=== PATIENT | female | born 1955 | race Caucasian/White ===

== ENCOUNTER → 2018-06-04 | Outpatient (CLI) | payer SELFPAY ==
[~2018-06-04] MED LIST: CYCL10 PO; FENT50TP TOP; OXYACE5T PO
[2018-06-04 18:32] LABS: U Amphetamine Screen DETECTED; U Barbituate Screen Not Detected; U Benzodiazapine Screen Not Detected; U Buprenorphine Screen Not Detected; U Cannabinoids Screen Not Detected; U Cocaine Screen Not Detected; U Methadone Screen Not Detected; U Methamphetamine Screen Not Detected; U Opiates Screen DETECTED; U Oxycodone Screen Not Detected; U Phencyclidine Screen Not Detected; U Propoxyphene Screen Not Detected
== END | disposition home or self-care (01) ==
LOC: LAB 17:24 → LAB SHORT 17:24
PROVIDERS: Internal Medicine
DX: G89.4 Chronic pain syndrome (principal)

== ENCOUNTER 2019-04-01 14:21 | Day surgery (SDC) | payer MEDICARE, OTHER ==
[~2019-04-01] VITALS: Ht 160 cm; Wt 72.0 kg
[~2019-04-01 14:21] MED LIST changes: +Adipex-P37.5 MG PO; +Aspirin EC81 MG PO; +EVZIO2 MG/0.4 M IM; +LEVSOD50 PO; +LEVSOD75 PO; +MIRALAX17 GM PO; +MORP30ER PO; +Neurontin600 MG PO; +OXYC5 PO; +UNISOM25 MG PO; +Vivelle-Dot1 EAC3 TD; +Zocor10 MG PO
--- NOTE | 2019-04-01 15:36 | NUR ---
04/01/19 1536 Jamar Tim 1ST IV ATTEMPT IN RFA UNSUCCESSFUL, ARIAN 2ND IV ATTEMPT IN LAC SUCCESSFUL, ARIAN
== END 2019-04-01 16:32 | disposition home or self-care (01) ==
LOC: ORSCSDS 14:21
PROVIDERS: Surgery
PROC: 0DJD8ZZ Inspection of Lower Intestinal Tract, Via Natural or Artificial Opening Endoscopic (ICD-10-PCS; principal; 2019-04-01 15:30)
DX: Z12.11 Encounter for screening for malignant neoplasm of colon (principal); Z85.038 Personal history of other malignant neoplasm of large intestine; K57.30 Diverticulosis of large intestine without perforation or abscess without bleeding; E78.5 Hyperlipidemia, unspecified; F32.9 Major depressive disorder, single episode, unspecified; Z86.718 Personal history of other venous thrombosis and embolism; Z79.82 Long term (current) use of aspirin; Z79.899 Other long term (current) drug therapy
CPT/HCPCS: J2704; J7120

== ENCOUNTER → 2020-02-25 | Outpatient (CLI) | payer MEDICARE, OTHER ==
[2020-02-25 15:52] LABS: U Amphetamine Screen Not Detected; U Barbituate Screen Not Detected; U Benzodiazapine Screen Not Detected; U Buprenorphine Screen Not Detected; U Cannabinoids Screen Not Detected; U Cocaine Screen Not Detected; U Methadone Screen Not Detected; U Methamphetamine Screen Not Detected; U Opiates Screen Not Detected; U Oxycodone Screen DETECTED; U Phencyclidine Screen Not Detected; U Propoxyphene Screen Not Detected
[2020-03-03 02:07] LABS: TRICYCLIC ANTIDEP Negative ng/mL (Cutoff=100)
== END | disposition home or self-care (01) ==
LOC: OLS 12:47 → LAB SHORT 12:47 → LAB FUT 02-22 13:20 → EDSTATUS 02-22 13:20
PROVIDERS: Physician Assistant Medical
DX: Z51.81 Encounter for therapeutic drug level monitoring (principal); Z79.891 Long term (current) use of opiate analgesic
CPT/HCPCS: G0480; G0481

== ENCOUNTER → 2021-09-12 | Outpatient (CLI) | payer MEDICARE, OTHER | END | disposition home or self-care (01) | LOC: LAB SHORT 12:55 | DX: B37.3 Candidiasis of vulva and vagina (principal) | CPT/HCPCS: 87070; 87205 ==